=== PATIENT | male | born 1980 | race African-American/Black ===

== ENCOUNTER 2022-10-24 20:25 | Emergency (ER) | payer OTHER, SELFPAY ==
[2022-10-24] MEDS ORDERED: Ondansetron PF 4 MG/2 ML Vial ONE (20:30)
[2022-10-24] MEDS ORDERED: Morphine 4 MG/ML VIAL ONE ×2 (20:30→20:58)
[2022-10-24] MEDS ORDERED: Sodium Chloride 0.9% 1,000 ML ONE (20:45)
[2022-10-24 20:51] LABS: #Basophils 0.2 thou/uL (0.0-0.2); #Eosinphils 0.1 thou/uL (0.0-0.7); #Lymphocytes 4.4 thou/uL (1.20-3.40); #Monocytes 0.6 thou/uL (0.11-0.59); #Neutrophils 2.3 thou/uL (1.40-6.50); %Basophils 2.1 % (0.0-1.0); %Eosinophils 1.2 % (0.0-10.0); %Lymphocytes 58.5 % (21.0-51.0); %Monocytes 7.6 % (0.0-10.0); %Neutrophils 30.6 % (42.0-75.0); Hemoglobin 13.2 g/dL (14.0-18.0); Mean Corpuscular HGB CONC 30.8 g/dL (32.0-36.0); Mean Corpuscular Hemoglobin 26.9 pg (27.0-31.0); Mean Corpuscular Volume 87.3 fl (78.0-98.0); Mean Platelet Volume 7.7 fL (7.4-10.4); Platelet Count 275 10x3/uL (130-400); RBC Distribution Width 15.7 % (11.5-14.5); Red Blood Cell (RBC) Count 4.92 mill/uL (4.70-6.10); White Blood Cell (WBC) Count 7.5 10x3/uL (4.8-10.8)
[2022-10-24 21:02] LABS: Anion Gap 14 mmol/L (10-20); BUN (Urea Nitrogen) 9 mg/dL (8.9-20.6); Calc. Creatinine Clearance 0 mL/min (70-130); Calcium 9.1 mg/dL (7.8-10.44); Carbon Dioxide 24 mmol/L (22-29); Chloride 108 mmol/L (98-107); Estimated GFR 71; Glucose 111 mg/dL (70-105); Potassium 3.4 mmol/L (3.5-5.1); Sodium 143 mmol/L (136-145)
[2022-10-24] MEDS ORDERED: Boostrix 0.5 ML (Tdap) VIAL (>/=7 yrs of age) ONE (21:47)
== END 2022-10-24 23:19 | disposition short-term general hospital (02) ==
LOC: NAV ERS 20:25
DX: S62.623B Displaced fracture of middle phalanx of left middle finger, initial encounter for open fracture (principal); S62.625B Displaced fracture of middle phalanx of left ring finger, initial encounter for open fracture; S62.627B Displaced fracture of middle phalanx of left little finger, initial encounter for open fracture; F17.210 Nicotine dependence, cigarettes, uncomplicated; Z23 Encounter for immunization; W23.0XXA Caught, crushed, jammed, or pinched between moving objects, initial encounter
CPT/HCPCS: 36415; 80048; 85025; 90471; 90715; 96374; 96375; J2270; J2405; J7050